=== PATIENT | female | born 2000 | race Caucasian/White ===

== ENCOUNTER 2022-11-02 07:42 | Emergency (ER) | payer OTHER, SELFPAY ==
--- NOTE | ~2022-11-02 | CT_ITS ---
EXAMINATION: CT facial & cervical spine wo DATE: 11/02/2022 09:06 INDICATION: Face injury. TECHNIQUE: Computed tomography (CT) of the maxillofacial region and cervical spine was performed with out intravenous contrast. Automated exposure control and iterative reconstruction technique were empl oyed. The dose-length product was 384.78 mGy-cm. COMPARISON: None FINDINGS: MAXILLOFACIAL CT: The orbits are normal. There is bilateral cheek soft tissue swelling. There is minimal mucosal thicke ya in the paranasal sinuses. The mastoid air cells are normal. There is no fracture. CERVICAL SPINE CT: There is kyphosis of cervical spine. There is 5 degrees dextrocurvature of cervicothoracic spine. Nick tebral body heights and intervertebral disc heights are normal. At C7-T1, there is mild bilateral fac et joint osteoarthritis. No neural foraminal stenosis or central canal stenosis. IMPRESSION: 1. No fracture. Reviewed, dictated and finalized at location A. IMPRESSION: 1. No fracture.
--- NOTE | ~2022-11-02 | CT_ITS ---
EXAMINATION: CT brain wo con DATE: 11/02/2022 09:05 INDICATION: Head injury. Syncope. TECHNIQUE: Computed tomography (CT) of the head was performed without intravenous contrast. The mA wa s adjusted according to patient size. Iterative reconstruction technique was employed. The dose-lengt h product was 605.33 mGy-cm. COMPARISON: None FINDINGS: There is no intracranial hemorrhage, acute infarction, or abnormal intracranial mass lesion . The ventricles are normal in size. The orbits are normal. The paranasal sinuses are clear. The mast oid air cells are normal. There is a right posterior scalp hematoma. IMPRESSION: 1. Normal brain. Reviewed, dictated and finalized at location A. IMPRESSION: 1. Normal brain.
--- NOTE | ~2022-11-02 | XR_ITS ---
EXAMINATION: XR shoulder RT min 2V DATE: 11/02/2022 09:06 INDICATION: Right shoulder injury. TECHNIQUE: 4 views of right shoulder were obtained. COMPARISON: None. FINDINGS: Bone alignment is normal. No fracture. Joint spaces are well maintained. IMPRESSION: 1. Normal right shoulder. Reviewed, dictated and finalized at location A. IMPRESSION: 1. Normal right shoulder.
[2022-11-02 07:50] VITALS: BP 131/105; PULSE 102; RESP 20; TEMP 36.6; O2SAT 98
[2022-11-02 08:52] LABS: Basophils Absolute Auto 0.02 K/mm3 (0.00-0.10); Basophils Percent Auto 0.1 % (0.0-1.0); Hematocrit 38.4 % (35.0-49.0); Hemoglobin 13.9 g/dL (12.0-15.0); Immature Granulocyte Absolute 0.07 K/mm3 (0.00-0.00); Immature Granulocyte Percent A 0.4 % (0.0-0.0); Lymphocytes Absolute Auto 0.98 K/mm3 (1.10-4.50); Lymphocytes Percent Auto 5.5 % (18.0-42.0); Mean Corpuscular HGB Conc 36.2 g/dL (32.0-36.0); Mean Corpuscular Hemoglobin 33.9 pg (27.0-31.0); Mean Corpuscular Volume 93.7 fL (78.0-102.0); Mean Platelet Volume 8.9 fl (9.2-11.8); Monocytes Absolute Auto 0.91 K/mm3 (0.10-0.90); Monocytes Percent Auto 5.1 % (2.0-11.0); Neutrophils Absolute Auto 15.9 K/mm3 (1.7-7.2); Neutrophils Percent Auto 88.9 % (50.0-70.0); Platelet Count Result 327 K/mm3 (150-420); Red Cell Distribution Width 11.7 % (11.6-14.4); White Blood Count 17.9 K/mm3 (4.8-10.8)
[2022-11-02 08:54] LABS: Appearance Urine Clear (Clear); Bilirubin Urine Negative (Negative); Blood Urine 3+ (Negative); Color Urine Light Yellow (Yellow); Glucose Urine UA Negative (Negative); Ketones Urine 1+ (Negative); Leukocyte Esterase Ur Trace LEU/UL (Negative); Nitrate Urine Negative (Negative); Protein Urine Negative (Negative); Specific Grav Ur 1.025 (1.010-1.020); Urobilinogen Urine 0.2 mg/dL (0.2-1.0); pH Urine 6.5 (5.0-8.0)
[2022-11-02 09:01] LABS: Add Urine Microscopic? YES; RBC Urine 21-50 /hpf (0-2); Squamous Epithelial Cell Urine Few /hpf (Few)
[2022-11-02 09:02] LABS: Bacteria Urine 1+ /hpf
[2022-11-02 09:09] LABS: Alanine Aminotransferase 19 U/L (14-59); Albumin Level 4.4 g/dL (3.4-5.0); Alkaline Phosphatase 52 U/L (46-116); Anion Gap 13 mmol/L (8-16); Aspartate Amino Transferase 21 U/L (15-37); Bilirubin,Total 0.6 mg/dL (0.00-1.00); Blood Urea Nitrogen 8 mg/dL (7-18); Calcium 8.8 mg/dL (8.5-10.1); Carbon Dioxide 25 mmol/L (21-32); Chloride 104 mmol/L (98-108); Creatine Kinase 150 U/L (26-192); Estimated Glomerular Filt Rate > 60; Glucose 108 mg/dL (70-99); Osmolality Calculated 293 mOsm/kg (285-295); Potassium 3.3 mmol/L (3.5-5.1); Pregnancy On Board Control Positive; Sodium 142 mmol/L (136-145); Total Protein 8.1 g/dL (6.4-8.2); Urine Pregnancy Test Negative
[2022-11-02 09:10] LABS: Amphetamine Screen Urine Negative (Negative); Barbiturate Screen Urine Negative (Negative); Benzodiazepines Screen Urine Negative (Negative); Cannabinoid Screen Urine Positive (Negative); Cocaine Screen Urine Negative (Negative); Methadone Screen Urine Negative (Negative); Opiate Screen Urine Negative (Negative); Phencyclidine Screen Urine Negative (Negative)
[2022-11-02] MEDS: SODIUM CHLORIDE 0.9% IV 1,000 ML 999 ML IV CONT (09:29)
[2022-11-02 09:30] VITALS: BP 120/77; PULSE 73; RESP 18; O2SAT 99
[2022-11-02] MEDS: KETOROLAC 30 MG/ML VIAL (*BKC) IV PUSH (09:30)
[2022-11-02] MEDS: TETANUS,DIPHTHERIA,AC PERTUSSIS ADULT 0.5 ML (ADACEL) IM (09:36)
--- NOTE | 2022-11-02 09:50 | PC.NURSE ---
Wound photography consent signed and photographs completed. ERP to bedside to clean and repair facial laceration.
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
[2022-11-02 10:31] VITALS: BP 117/77; PULSE 63; RESP 20; TEMP 36.9; O2SAT 100
== END 2022-11-02 10:38 | disposition home or self-care (01) ==
PROVIDERS: Emergency Provider Emergency Medicine
DX: S01.81XA Laceration without foreign body of other part of head, initial encounter (principal); S40.011A Contusion of right shoulder, initial encounter; M54.2 Cervicalgia; Z23 Encounter for immunization; Y04.2XXA Assault by strike against or bumped into by another person, initial encounter
CPT/HCPCS: 12011; 36415; 70450; 70486; 72125; 73030; 80053; 80307; 81001; 81025; 82550; 85025; 90471; 90715; 96361; 96374; 96375; 99284; J0696; J1885; J7030

== ENCOUNTER 2023-08-04 12:15 | Emergency (ER) | payer OTHER, SELFPAY ==
--- NOTE | ~2023-08-04 | CT_ITS ---
EXAMINATION: CT facial & cervical spine wo DATE: 08/04/2023 14:35 INDICATION: injury to left temporal TECHNIQUE: Computed tomography (CT) of the maxillofacial region and cervical spine was performed with out intravenous contrast. Automated exposure control and iterative reconstruction technique were empl oyed. The dose-length product was 488.75 mGy-cm. COMPARISON: 11/02/2022 FINDINGS: CERVICAL: Vertebral Body Alignment: Intact. Craniocervical and atlantoaxial alignment: No significant degenerative change. Alignment intact. Osseous structures/fracture: No evidence of a lytic or blastic process in the visualized spine. No e vidence of acute fracture. Cervical soft tissues: The paraspinal soft tissues planes are maintained. Degenerative changes: No significant degenerative changes. FACE: Soft Tissues: No significant superficial soft tissue swelling. Facial bones: No acute fracture. No lytic or blastic process. Eyes: The globes are intact. The soft tissue planes of the orbits are maintained. Paranasal Sinuses: The visualized aerated spaces are clear. Foreign Bodies: No radiopaque foreign bodies. Other Findings: None. IMPRESSION: No acute fracture or traumatic malalignment in the cervical spine. No acute facial bone fracture. Reviewed, dictated and finalized at location K. MAN IMPRESSION: No acute fracture or traumatic malalignment in the cervical spine. No acute fac ial bone fracture.
--- NOTE | ~2023-08-04 | CT_ITS ---
EXAMINATION: CT brain wo con DATE: 08/04/2023 14:35 INDICATION: trauma to occiput . TECHNIQUE: Computed tomography (CT) of the head was performed without intravenous contrast. The mA wa s adjusted according to patient size. Iterative reconstruction technique was employed. The dose-lengt h product was 605.33 mGy-cm. COMPARISON: 11/02/2022. FINDINGS: No acute intracranial hemorrhage or extra-axial fluid collection. No hydrocephalus, mass, or herniation. No acute ischemic infarct. Unremarkable dural venous sinus attenuation. No acute osseous abnormality. Left occipital scalp contusion. The aerated spaces are clear. IMPRESSION: No acute intracranial process. Reviewed, dictated and finalized at location K. [employer] TUTOR
[2023-08-04 12:20] VITALS: BP 164/99; PULSE 88; RESP 20; TEMP 36.8; O2SAT 99
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
[2023-08-04 14:12] LABS: Pregnancy On Board Control Positive; Urine Pregnancy Test Negative
[2023-08-04 14:30] VITALS: BP 148/88; PULSE 80; RESP 20; O2SAT 99
[2023-08-04] MEDS: TETANUS,DIPHTHERIA,AC PERTUSSIS ADULT 0.5 ML (ADACEL) IM (15:35)
[2023-08-04 16:10] VITALS: BP 142/84; PULSE 82; RESP 20; TEMP 36.7; O2SAT 99
== END 2023-08-04 16:27 | disposition home or self-care (01) ==
PROVIDERS: Emergency Provider Internal Medicine Critical Care Medicine; PCP Nurse Practitioner Psychiatric/Mental Health
DX: H72.92 Unspecified perforation of tympanic membrane, left ear (principal); S00.81XA Abrasion of other part of head, initial encounter; Z79.899 Other long term (current) drug therapy; Z23 Encounter for immunization; Y04.2XXA Assault by strike against or bumped into by another person, initial encounter; Y92.009 Unspecified place in unspecified non-institutional (private) residence as the place of occurrence of the external cause
CPT/HCPCS: 70450; 70486; 72125; 81025; 90471; 90715; 99284

== ENCOUNTER 2024-09-20 01:16 | Emergency (ER) | payer OTHER, SELFPAY ==
--- NOTE | ~2024-09-20 | XR_ITS ---
XR elbow LT min 3V 09/20/2024 01:52 Indication: Left elbow pain after fall Procedure: 3 views left elbow Comparison: No prior studies for comparison. Findings: There is a probable nondisplaced radial neck fracture. Correlate for point tenderness. Stud y limited due to nonstandard views. Cannot evaluate for joint effusion. Impression: 1: Probable nondisplaced radial neck fracture. Correlate for point tenderness. Recommend conservative therapy. Recommend repeat x-rays with standard views and 7-to 10 days. Reviewed, dictated and finalized at location B. Impression: 1: Probable nondisplaced radial neck fracture. Correlate for point tenderness. Recommend conservative therapy. Recommend repeat x-rays with standard views and 7-to 10 days.
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
[2024-09-20 01:20] VITALS: BP 137/92; PULSE 100; RESP 20; TEMP 36.6; O2SAT 97
--- NOTE | 2024-09-20 02:02 | PC.NURSE ---
[place] [employer] here to speak w/ pt. Pt walked to sit back at top of bed w/ assist. Pt screaming and crying on arrival of PD stating her arm is hurting.
[2024-09-20 02:50] VITALS: BP 138/74; PULSE 100; RESP 20; O2SAT 97
== END 2024-09-20 02:50 | disposition home or self-care (01) ==
LOC: CHSED 02:24
PROVIDERS: Emergency Provider Emergency Medicine; PCP Nurse Practitioner Psychiatric/Mental Health
DX: S42.402A Unspecified fracture of lower end of left humerus, initial encounter for closed fracture (principal); V47.1XXA Car passenger injured in collision with fixed or stationary object in nontraffic accident, initial encounter
CPT/HCPCS: 29105; 73080; 99284; A4565